=== PATIENT | male | born 1985 ===

== ENCOUNTER 2023-04-24 06:00 | Outpatient (RCR) | payer OTHER, SELFPAY | END 2023-04-25 23:59 | disposition home or self-care (01) | LOC: MOT 06:00 | PROVIDERS: Visit Provider Orthopaedic Surgery Hand Surgery | DX: S66.12 Laceration of flexor muscle, fascia and tendon of other and unspecified finger at wrist and hand level (principal); X58.XXXD Exposure to other specified factors, subsequent encounter | CPT/HCPCS: 97110; 97166 ==

== ENCOUNTER 2023-04-26 06:00 | Outpatient (RCR) | payer OTHER, SELFPAY | END 2023-05-25 23:59 | disposition home or self-care (01) | LOC: MOT 06:00 | PROVIDERS: Visit Provider Orthopaedic Surgery Hand Surgery | DX: S56.129A Laceration of flexor muscle, fascia and tendon of unspecified finger at forearm level, initial encounter (principal); S61.209A Unspecified open wound of unspecified finger without damage to nail, initial encounter; X58.XXXA Exposure to other specified factors, initial encounter | CPT/HCPCS: 97018; 97022; 97110; 97140 ==

== ENCOUNTER 2023-05-26 06:00 | Outpatient (RCR) | payer OTHER, SELFPAY | END 2023-06-25 23:59 | disposition home or self-care (01) | LOC: MOT 06:00 | PROVIDERS: Visit Provider Orthopaedic Surgery Hand Surgery | DX: Z47.89 Encounter for other orthopedic aftercare (principal) | CPT/HCPCS: 97018; 97022; 97110; 97140 ==